=== PATIENT | male | born 1980 | race Caucasian/White ===

== ENCOUNTER 2025-03-07 17:13 | Emergency (ER) | payer OTHER, SELFPAY ==
[2025-03-07 17:19] VITALS: BP 140/86; PULSE 104; RESP 16; TEMP 36.2; O2SAT 98
--- OUTSIDE RECORDS SUMMARY | 2025-03-07 17:21 | XMS_ITS | Patient Health Record ---
[facility] Address [address] [place] [id number] Care Team Providers Care Sweatband Maker Name Role Phone Dandy Álvarez Primary Care Provider Reason For Referral No Information Medications Medication SIG (Take, Route, Frequency, Duration) Notes Start Date End Date Status Qvar 40mcg/actuation inhale 2 puff by in h INHALATION 06/14/2014 Active Nasonex 50mcg/actuation spray 2 spray by int NASAL 02/05/2013 Active Shira-D 24 Hour 180-240mg take 1 tablet by ora ORAL 12/26/2011 Ac tive Problems Problem Type SNOMED Code ICD Code Onset Dates Problem Status W/U Status Risk Notes Problem Chronic sinusitis (56545567) Unspecified sinusitis (chronic) (473.9) 0 confirmed Arie Problem Allergic rhinitis (49410176) Allergic rhinitis, cause unspecified (477.9) 0 confirmed Arie Problem Asthma without status asthmaticus (51751036) Asthma, unspecified, unspecified status (493.90) 0 confirmed Arie Problem Tenosynovitis of foot and ankle (727.06) 0 confirmed Arie Problem Localized infection of skin AND/OR subcutaneous tissue (192251038) Unspecified local infection of skin and subcutaneous tissue (686.9) 0 confirmed Arie Problem Shoulder joint pain (861425102) Pain in joint, shoulder region (719.41) 0 confirmed Arie Problem Cervicalgia (27709247) Cervicalgia (723.1) 0 confirmed Arie Problem Hypersomnia (23578038) Hypersomnia, unspecified (780.54) 0 confirmed Arie Problem Malaise and fatigue (748607016) Other malaise and fatigue (780.79) 0 confirmed Arie Problem Shortness of breath (384979718) Shortness of breath (786.05) 0 confirmed Arie Problem Thoracic back sprain (307660750) Thoracic sprain and strain (847.1) 0 confirmed Arie Problem Exposure to sexually transmissible disorder (event) (755125008) Contact with or exposure to venereal diseases (V01.6) 0 confirmed Arie Problem 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) 0 confirmed Arie Problem Disorder of male genital organ (06867821) Other specified disorders of male genital organs (N50.8) 0 confirmed Arie Plan Of Treatment No Information Insurance Providers Payer Name Payer Address Payer Phone Subscriber Number Group Number Insured Name Patient Relationship to Insured Coverage Start Date Coverage End Date [facility] [address] [place] [phone] [id number] Jewel Lockhart Self - patient is the insured [facility] [address] [place] [address] [phone] [id number] 2000 [id number] Jewel Lockhart Self - patient is the insured [facility] [address] [place] [address] [phone] [id number] 2000 [id number] Jewel Lockhart Self - patient is the insured
--- OUTSIDE RECORDS SUMMARY | 2025-03-07 17:21 | XMS_ITS | Clinical Summary ---
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
--- OUTSIDE RECORDS SUMMARY | 2025-03-07 17:21 | XMS_ITS | Clinical Summary ---
Author Organization [facility] Address [address] [place] [address] Phone Care Team Providers Care Counter Waiter Name Role Phone Nacho Tomlin MD Primary Care Provider Marco Antonio Almanza APRN, ELECTION ASSISTANT Unavailable Gissell Smiley OFFICE BOOKKEEPER, ELECTION ASSISTANT Unavailable + Edel Luciano APRN, ELECTION ASSISTANT Unavaila ble Allergies No known active allergies Medications fluticasone (FLONASE) 50 MCG/ACT Suspension 1-2 Sprays by Nasal route daily. Use in each nostril as directed. Active Pseudoephedrine -guaiFENesin (MUCINEX D PO) Take by mouth. Active busPIRone (BUSPAR) 10 MG TabletIndicatio ns:Anxiety and depression Take 1 Tablet by mouth 2 times daily as needed for Other. 60 Tablet 10/28/2024 Active meloxicam (MOBIC) 15 MG TabletIndicatio ns:Acute pain of right knee Take 0.5-1 Tablets by mouth daily. 90 Tablet 10/28/2024 Active PARoxetine (PAXIL) 10 MG TabletIndicatio ns:Anxiety and depression Take 1 Tablet by mouth nightly. 90 Tablet 3 12/02/2024 Active Amoxicillin 500 MG TabletIndicatio ns:Uvulitis,Sor e throat Take 1 Tablet by mouth 2 times daily for 10 days. 20 Tablet 01/29/2025 02/09/20 25 Active Problems No known active problems Encounters Date Type Department Care Team Description 02/04/2025 MyChart RX Renewal [facility] - [facility] [address] [facility] [address] [place] [address] Marco Antonio Almanza APRN, CNP Medication Renewal Request 02/03/20[facility] [address] [facility] [address] [place] [address] Marco Antonio Almanza APRN, CNP Medication Refill 01/29/2025 8:05 AM CDT Urgent Care Visit [facility] [address] [facility] [address] [place] [address] Chiquita Hernandez APRN, CNP Uvulitis (Primary Dx); Sore throat Discharge Disposition: Discharged to home or Selfcare 01/29/2025 Travel 12/21/2024 2:45 PM CDT Initial Consult [facility]/PULMONARY & SLEEP MEDICINE [address] [place] [address] Marco Antonio Almanza APRN, Dale Bowen MD Sleep-disordered breathing (Primary Dx); Class 1 obesity without serious comorbidity with body mass index (BMI) of 31.0 to 31.9 in adult, unspecified obesity type Discharge Disposition: Discharged to home or Selfcare 12/21/2024 Travel from Last 3 Months Immunizations Immunization Administration Dates Next Due Covid-19, Mrna, Lnp-s, Pf, 30 Mcg/0.3 Ml Dose (P fizer) 09/08/2020,08/11/2020 Influenza Vaccine, Quadrivalent, PF 01/24/2023,0 05/14/2022 TDAP Vaccine 05/14/2022 Family History Medical History Relation Name Comments No Known Problems Brother 1 No Known Problems Brother 2 Autoimmune Disease Father Heart Attack Maternal Grandfather Multipl e No Known Problems Maternal Grandmother No Known Problems Mother Skin Cancer Paternal Grandfather Chronic Obstructive Pulmonary Disease Paternal Grandmo ther Relation Name Status Comments Brother 1 Alive Brother 2 Alive Father Maternal Grandfather Maternal Grandmother Mother Alive Paternal Grandfather Paternal Grandmother Social History Tobacco Use Types Packs/Day Years Used Date Smoking Tobacco: Never Passive Smoke Exposure: Never Smokeless Tobacco: Never Tobacco Cessation:Counseling Given: Not Answered Alcohol Use Standard Drinks/Week Comments Yes 4 (1 standard drink = 0.6 oz pur e alcohol) PHQ-2 Answer Date Recorded Total Score - Questions 1-9 5 11/10 Sexually Active Control Partners Comments Yes Female Sex and Gender Information Value Date Recorded Sex Assigned at Not on file Legal Sex Male 3:16 PM CDT Gender Identity Not on file Sexual Orientation Not on file 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 Not on file Not on file Last Filed Vital Signs Vital Sign Reading Time Taken Comments Blood Pressure 130/88 01/29/2025 8:07 AM CDT Pulse 76 01/29/2025 8:07 AM CDT Temperature 36.6 C (97.8 F) 01/29/2025 8:07 AM CDT Respiratory Rate 16 01/29/2025 8:07 AM CDT Oxygen Saturation 99% 01/29/2025 8:07 AM CDT Inhaled Oxygen Concentration - - Weight 108.9 kg (240 lb) 01/29/2025 8:07 AM CDT Height 188 cm (6' 2) 01/29/2025 8:07 AM CDT Body Mass Index 30.81 01/29/2025 8:07 AM CDT Plan of Treatment Upcoming Encounters Date Type Department Care Team (Late st Contact Info) Description 12/05/2025 1:00 PM CDT Office Visit [facility] - Primary Care - [address] [facility] [address] [place] [address] Marco Antonio Almanza, OFFICE BOOKKEEPER, ELECTION ASSISTANT [address] [facility] [address] [place] [address] Health Maintenance Due Date Last Done Comments Human Papillomavirus (HPV) Immunization (1 - 3-dose SCDM series) 2008 Influenza Immunization (#1) 01/10/202501/10, 05/14/2022 SARS-COV-2 Immunization ( season) 2025 05/16/2021, 09/08/2020, 08/11/2020 Td Immunization Every 10 Yea rs (Adults With 1 Tdap) 05/14/2032 05/14/2022 Respiratory Syncytial Virus (RSV) Immunization (Adult) (1 - 1-dose 75+ series) 2056 DTaP/Tdap/Td Immunization Discontinued 05/14/2022 Hepatitis C Virus (HCV) Screening Completed 12/12/2022 Hepatitis B Immunization Discontinued Meningococcal Immunization (ACWY) Aged Out No longer eligible based on patient's age to complete this topic Pneumococcal Immunization Combined Aged Out No longer eligible based on patient's age to complete this topic Rotavirus Immunization Aged Out No lo nger eligible based on patient's age to complete this topic Procedures Procedure Name Priority Date/Time Associated Diagnosis Comments POC GROUP A STREP BY MOLECULAR Routine 01/29/2025 8:15 AM CDT Sore throat HEPATITIS C ANTIBODY Routine 12/12/2022 6:11 AM CDT Need for hepatitis C screening test from Last 3 Months or Most Recently Relevant to Health Maintenance Results * POC GROUP A STREP BY MOLECULAR (01/29/2025 8:15 AM CDT) STREP A DNA Negative Negative, Invalid PROCEDURE CONTROL Valid Comment:QC OK 01/29/2025 8:15 AM CDT Chiquita Hernandez APRN, ELECTION ASSISTANT POINT OF CARE TESTING ( MANUAL) Final Result * HEPATITIS C ANTIBODY (12/12/2022 6:11 AM CDT) hepatitis C antibody 0.10 <1 S/[facility] [id number] 12/12/2022 5:19 PM CDT [facility] Comment: Signal/Cutoff ratio < 0.79 is Nondetected Signal/Cutoff ratio 0.80-0.99 is Grayzone Signal/Cutoff ratio > 0.99 is Detected Supplemental assays are recommended if signal/cutoff ratio is >/=1.00. Signal/cutoff ratio result >/= 5.00 is 97% predictive of positivity for recombinant immunoblot assay (RIBA) and will be reported to the [place] Department of Public [facility] as required. Blood Venipuncture / Unknown 12/12/2022 6:11 AM CDT 12/12/2022 7:25 AM CDT Judith Lr APRN, CNP CHEMISTRY ORDERABLE S Final Result [facility] [address] [place] [address], [place] from Last 3 Months or Most Recently Relevant to Health Maintenance Insurance [facility] Care Teams Counter Waiter Relationship Specialty Start Date End Date Nacho Tomlin MD [address] [place] [address] PCP - General Family Medicine 10/28/24 Marco Antonio Almanza APRN, ELECTION ASSISTANT [address] [place] [address] Nurse Practitioner Advanced Practice Nurse 10/28/24 Gissell Smiley APRN, ELECTION ASSISTANT [address] [place] [address] Nurse Practitioner Advanced Practice Nurse 10/28/24 Edel Luciano APRN, ELECTION ASSISTANT [address] [facility] [address] [place] [address] Nurse Practitioner Advanced Practice Nurse 10/28/24
--- OUTSIDE RECORDS SUMMARY | 2025-03-07 17:21 | XMS_ITS | Clinical Summary ---
Author Organization [facility] Address [address] [place] [address] Phone Care Team Providers Care Wire Wrapping Machine Operator Name Role Phone Identified, No Provider Primary Care Provider Un available Allergies No known active allergies Medications atorvastatin (LIPITOR) 10 mg tablet Take 10 mg by mouth every day 01/24/2023 Active omeprazole 20 mg delayed release capsule Take 20 mg by mouth every day 01/24/2023 Active fluticasone propionate 50 mcg/actuation nasal spray 1-2 sprays by Nasal route every day Active tamsulosin (FLOMAX) 0.4 mg extended release capsule Take 0.4 mg by mouth every day 01/24/2023 Active Active Problems Problem Noted Date Diagnosed Date Neck pain 05/19/2023 Social History Tobacco Use Types Packs/Day Years Used Date Smoking Tobacco: Former Cigarettes Smokeless Tobacco: Never Tobacco Cessation:Counseling Given: Not Answered Sex and Gender Information Value Date Recorded Sex Assigned at Not on file Legal Sex Male 2:13 PM CDT Gender Identity Not on file Sexual Orientation Not on file Last Filed Vital Signs Vital Sign Reading Time Taken Comments Blood Pressure 118/82 05/19/2023 7:56 AM SENIOR IT SPECIALIST Pulse 77 05/19/2023 7:56 AM SENIOR IT SPECIALIST Temperature - - Respiratory Rate - - Oxygen Saturation 98% 05/19/2023 7:56 AM SENIOR IT SPECIALIST Inhaled Oxygen Concentration - - Weight 110.2 kg (243 lb) 05/19/2023 7:56 AM SENIOR IT SPECIALIST Height 188 cm (6' 2) 05/19/2023 7:56 AM SENIOR IT SPECIALIST Body Mass Index 31.2 05/19/2023 7:56 AM SENIOR IT SPECIALIST Plan of Treatment Health Maintenance Due Date Last Done Comments MMR Vaccines (1 of 1 - Standard series) 1982 Depression Screening 1993 Varicella Vaccines (1 of 2 - 13+ 2-dose series) 1994 Hepatitis B Vaccines (1 of 3 - 19+ 3-dose series) 2000 Lipid Panel 2001 HPV Vaccines (1 - 3-dose SCD M series) 2008 Screening for Diabetes 2016 COVID-19 Vaccine (4 - 2024-2 6 season) 2025 05/16/2021, 09/08/2020, 08/11/2020 Influenza Vaccine (#1) 2025 , 05/14/2022 DTaP/Tdap/Td Vaccines (2 - T d or Tdap) 05/14/2032 05/14/2022 HIB Vaccines Aged Out No longer eligi ble based on patient's age to complete this topic Hepatitis A Vaccines Aged Out No long er eligible based on patient's age to complete this topic IPV Vaccines Aged Out No longer eligi ble based on patient's age to complete this topic Meningococcal B Vaccine Aged Out No l onger eligible based on patient's age to complete this topic Meningococcal Vaccine (ACWY) Aged Out No longer eligible based on patient's age to complete this topic Pneumococcal Vaccines Aged Out No gina nani eligible based on patient's age to complete this topic Rotavirus Vaccines Aged Out No longer eligible based on patient's age to complete this topic [place] [address] [facility] membrane [facility] Commercial (POS, PPO, etc) Address: [address] [address] [facility] Care Teams Wire Wrapping Machine Operator Relationship Specialty Start Date End Date Identified, No Provider PCP - General 12/13/21
--- NOTE | 2025-03-07 17:36 | ED_ITS ---
HPI - General Adult General Chief complaint: Upper Respiratory Infection Stated complaint: Sinus Infection Source: patient Mode of arrival: ambulatory Limitations: no limitations History of Present Illness HPI narrative: Patient presents for evaluation of sick symptoms since last week. He reports sinus congestion, thick yellow nasal drainage, sore throat, and occasional cough. Last night he experienced hot flashes and chills, which is what prompted him to come in today. No specific sick contacts but he has been living in a hotel for work. He has been taking OTC meds with little relief. He does not smoke. Related Data Home Medications ?Medication ?Instructions ?Recorded ?Confirmed ?Last Taken ?Type paroxetine HCl 10 mg tablet mg PO 03/07/25 Unknown Hi story Allergies Allergy/AdvReac Type Severity Reaction Status Date / Time No Known Allergies Allergy Verified 03/07/25 17:19 Review of Systems Review of Systems: CONSTITUTIONAL: reports hot flashes and chills. EYES: Denies visual changes, redness, or discharge. ENT: Reports sinus congestion, thick yellow drainage from the nares, and sore throat. CARDIOVASCULAR: Denies chest pain, palpitations, or edema. RESPIRATORY: Reports occasional cough. Denies shortness of breath. GASTROINTESTINAL: Denies abdominal pain, nausea, vomiting, or diarrhea. GENITOURINARY: Denies dysuria or hematuria. SKIN: Denies rash or itching. MUSCULOSKELETAL: Denies back pain, joint pain, or myalgia. NEUROLOGIC: Denies headache, numbness, dizziness, or weakness. PSYCHIATRIC: Denies anxiety or depression. PMFSH Past Medical History Medical History Depression Surgical History Surgical History No pertinent past surgical history Family History Family History Mother Family history non-contributory Social History Social History Substance use: never Living arrangements: with family Gender identity (if verbalized by the patient): Male Spiritual care concerns: No Exam Narrative: GENERAL: Well-appearing, well-nourished, and in no acute distress. HEAD: Normocephalic, atraumatic. EYES: PERRLA and EOMI. ENT: Nares clear, no rhinorrhea or epistaxis. Mucous membranes moist. Oropharynx without tonsillar hypertrophy exudate or other lesions. Bilateral TMs pearly lubin nonbulging NECK: Supple. No adenopathy or masses. No carotid bruits or JVD CHEST: Clear to auscultation. No respiratory distress. No wheezes rales or rhonchi HEART: Regular rate and rhythm. No murmur heard. Normal peripheral pulses. ABDOMEN: Soft, nontender, nondistended, normal active bowel sounds. EXTREMITIES: Normal range of motion. No edema. SKIN: Warm, dry, no rash. NEURO: No focal deficits. Alert and oriented x3. PSYCH: Normal mood and affect. Course Course Emergency Course: This is a 44-year-old male who presented for evaluation of sick symptoms. COVID, strep, influenza were all negative. He meets criteria for bacterial sinusitis based upon duration of time in which she has been symptomatic and mucopurulent nature of the discharge. Discharge with Augmentin. Increase hydration. [id number] agents for symptom management. Follow up with primary provider. Go to the ER for worsening symptoms. Patient in agreement with plan of care per Level of Care: Express Care Visit Vital Signs Vital signs: Vital Signs Temperature 36.2 C L 03/07/25 17:19 Pulse Rate 104 H 03/07/25 17:19 Respiratory Rate 16 03/07/25 17:19 Blood Pressure 140/86 03/07/25 17:19 Pulse Oximetry 98 03/07/25 17:19 Oxygen Delivery Room Air 03/07/25 17:19 Temperature 36.2 C L 03/07/25 17:19 Pulse Rate 104 H 03/07/25 17:19 Respiratory Rate 16 03/07/25 17:19 Blood Pressure 140/86 03/07/25 17:19 Pulse Oximetry 98 03/07/25 17:19 Oxygen Delivery Room Air 03/07/25 17:19 Medical Decision Making Vital Signs Vital Signs: Vital Signs Temperature 36.2 C L 03/07/25 17:19 Pulse Rate 104 H 03/07/25 17:19 Respiratory Rate 16 03/07/25 17:19 Blood Pressure 140/86 03/07/25 17:19 Pulse Oximetry 98 03/07/25 17:19 Oxygen Delivery Room Air 03/07/25 17:19 Temperature 36.2 C L 03/07/25 17:19 Pulse Rate 104 H 03/07/25 17:19 Respiratory Rate 16 03/07/25 17:19 Blood Pressure 140/86 03/07/25 17:19 Pulse Oximetry 98 03/07/25 17:19 Oxygen Delivery Room Air 03/07/25 17:19 Lab Data Labs: Lab Results 03/07/25 Range/Units 17:22 POC Influenza A Ag Negative (Negative) POC Influenza B Ag Negative (Negative) POC SARS CoV-2 Ag Negative (Negative) POC Grp A Strep Screen Negative (Negative) Discharge Plan Discharge Clinical Impression: Sinusitis Patient Disposition: Home Condition: Stable Instructions: Antibiotic Form, Sinusitis (ED) Patient Language: Kazakh Prescriptions: New amoxicillin-pot clavulanate 875-125 mg tablet 1 tablet PO Q12H Qty: 20 0RF No Action paroxetine HCl 10 mg tablet PO Follow-up/Referrals: Alan Ferrara MD [Physician, Family Practice] Time of Disposition: 17:49
[2025-03-07 17:47] LABS: EDCOVIDSCREEN Negative (Negative); EDINFLUASCREEN Negative (Negative); EDINFLUBSCREEN Negative (Negative); EDSTREPNEGPOS1 Negative (Negative)
== END 2025-03-07 17:50 | disposition home or self-care (01) ==
PROVIDERS: Emergency Provider Nurse Practitioner
DX: J32.9 Chronic sinusitis, unspecified (principal); Z20.822 Contact with and (suspected) exposure to COVID-19; F32.A Depression, unspecified
CPT/HCPCS: 87081; 87426; 87804; 87880; 99203; G0463